=== PATIENT | female | born 1985 | race African-American/Black ===

== ENCOUNTER 2016-10-04 11:48 | Emergency (ER) | payer OTHER ==
[~2016-10-04] VITALS: Ht 170.2 cm; Wt 110.0 kg
[2016-10-04 12:31] LABS: BASOPHILS % 0.6 % (0.0-2.0); EOSINOPHILS % 3.4 % (0.0-5.0); HEMATOCRIT. 35.8 % (36.0-48.0); LYMPHOCYTES % 13.8 % (20.0-50.0); MEAN CORPUSCULAR HEMOGLOBIN 30.4 pg (28.0-32.0); MEAN CORPUSCULAR VOLUME 90.4 fL (81.0-99.0); MONOCYTES % 3.1 % (2.0-8.0); NEUTROPHILS % 79.1 % (40.0-76.0); PLATELET 273 x1000/uL (130-400); RED BLOOD CELL COUNT 3.97 mill/uL (4.2-5.4); RED CELL DISTRIBUTION WIDTH 13.5 % (11.6-14.6)
[2016-10-04 12:39] LABS: INR 1.1
[2016-10-04 12:48] LABS: CARBON DIOXIDE 29 mEq/L (21-32); CHLORIDE 105 mEq/L (98-107)
[2016-10-04 12:56] LABS: TROPONIN I < 0.02 ng/mL (0.00-0.04)
[2016-10-04 14:43] LABS: *AMPHETAMINES SCREEN URINE NEGATIVE (NEGATIVE); *BARBITURATES SCREEN URINE NEGATIVE (NEGATIVE); *BENZODIAZEPINES SCREEN URINE NEGATIVE (NEGATIVE); *COCAINE SCREEN URINE NEGATIVE (NEGATIVE); CANNABINOID URINE SCREEN NEGATIVE (NEGATIVE); METHADONE URINE SCREEN NEGATIVE (NEGATIVE); OPIATES URINE SCREEN NEGATIVE (NEGATIVE); PHENCYCLIDINE URINE SCREEN NEGATIVE (NEGATIVE)
[2016-10-04] MEDS ORDERED: PREDNISONE 20MG TABLET PO ONE (14:45)
[2016-10-04] MEDS ORDERED: KETOROLAC 30MG/ML VIAL IV ONE (14:45)
[2016-10-04 17:00] VITALS: BP 127/71
== END 2016-10-04 17:05 | disposition home or self-care (01) ==
LOC: ER 12:08
DX: R07.89 Other chest pain (principal); M32.9 Systemic lupus erythematosus, unspecified
CPT/HCPCS: 36415; 71010; 80048; 80305; 81025; 83880; 84484; 85025; 85610; 93005; 96374; 99285; J1885; J7512; Z7610